=== PATIENT | female | born 1995 | race Caucasian/White ===

== ENCOUNTER 2019-12-23 22:12 | Emergency (ER) | payer SELFPAY ==
[~2019-12-23] VITALS: Ht 157.5 cm; Wt 54.4 kg
[2019-12-23 22:15] VITALS: BP 136/82
--- NOTE | 2019-12-23 22:17 | NUR ---
TO LOBBY A/W BED AMBULATORY
--- NOTE | 2019-12-23 22:20 | NUR ---
PT AMBULATED TO BED 7.
--- NOTE | 2019-12-23 22:25 | NUR ---
PT 24 Y/O FEMALE BIB SELF FOR C/O L BREAST PAIN X 1 WEEK. PAIN IS DULL, CONTINOUS 2/10. PAIN IS NON RADIATING. NO SWELLING OR REDNESS NOTED IN BREAST. PT STATES BREAST SENSITIVE TO TOUCH. BREAST IS WARM TO TOUCH. NO DRAINAGE NOTED. SKIN IS INTACT AND DRY TO TOUCH. PT STATES SHE STOPPED BREAST FEEDING X 1 YEAR AGO. PARTNER AT BEDSIDE. VSS. RESPIRATIONS ARE EVEN AND UNLABORED. BED LOCKED AND IN LOWEST POSITION. MEDHX: NONE ALLERGIES: NKA
--- NOTE | 2019-12-23 22:25 | NUR ---
Note [email or web address] in EDM - 12/23/19 at 2234 by [email or web address] Patient discharged with v/s stable. Written and verbal after care instructions given and explained. Patient alert, oriented and verbalized understanding of instructions. Ambulatory with steady gait. All questions addressed prior to discharge. ID band removed. Patient advised to follow up with PMD. Rx of MACROBID given. Patient educated on indication of medication including possible reaction and side effects. Opportunity to ask questions provided and answered.
--- NOTE | 2019-12-24 01:00 | NUR ---
DR. FARAH AT BEDSIDE.
[2019-12-24 01:45] VITALS: BP 125/80
--- NOTE | 2019-12-24 01:45 | NUR ---
Patient discharged with v/s stable. Written and verbal after care instructions given and explained. Patient verbalized understanding. Ambulatory with steady gait. All questions addressed prior to discharge. Advised to follow up with PMD.
== END 2019-12-24 01:45 | disposition home or self-care (01) ==
LOC: MED 22:12
DX: N64.4 Mastodynia (principal)
CPT/HCPCS: 99281; 99284